=== PATIENT | male | born 1990 | race Caucasian/White ===

== ENCOUNTER 2020-05-04 22:45 | Inpatient (IN) ==
[2020-05-04] MEDS ORDERED: LORazepam 2 MG/4 ML VIAL IV STA ×2 (23:11→23:13)
[2020-05-04] MEDS ORDERED: SODIUM CHLORIDE 0.9% 1000ML 1,000 ML IV SCH (23:15)
[2020-05-04] MEDS: LORazepam 2 MG/4 ML VIAL ONE (23:20)
[2020-05-04 23:35] LABS: Appearance Urine Clear (Clear); Bilirubin Urine Negative (Negative); Blood Urine Negative (Negative); Color Urine Yellow; Glucose Urine UA Negative (Negative); Ketones Urine Negative (Negative); Leukocyte Esterase Urine Negative (Negative); Nitrite Urine Negative (Negative); Protein Urine Negative (Negative); Specific Gravity Urine 1.009 (1.000-1.030); Urobilinogen Urine Negative (Negative)
[2020-05-04 23:40] LABS: Basophils # (auto) 0.12 K/uL (0-0.2); Basophils % (auto) 0.8 %; Eosinophils # (auto) 1.13 K/uL (0-0.5); Eosinophils % (auto) 7.6 %; Hematocrit (blood only) 44.7 % (42-52); Hemoglobin 15.3 g/dL (14.0-18.0); Immature Granulocytes % (auto) 0.7 %; Lymphocytes # (auto) 4.19 K/uL (1.2-3.4); Lymphocytes % (auto) 28.2 %; Mean Corpuscular Hemoglobin 29.4 pg (25-34); Mean Corpuscular Hgb Conc 34.2 g/dL (32-36); Mean Corpuscular Volume 85.8 fL (80-100); Mean Platelet Volume 8.8 fL (7.4-10.4); Monocytes # (auto) 1.35 K/uL (0.11-0.59); Monocytes % (auto) 9.1 %; Neutrophils # (auto) 7.95 K/uL (1.4-6.5); Neutrophils % (auto) 53.6 %; Platelet Count 318 K/uL (130-400); RDW Coefficient of Variation 14.7 % (11.5-14.5); RDW Standard Deviation 46.2 fL (36.4-46.3); Red Blood Count 5.21 M/uL (4.7-6.1); White Blood Count 14.84 K/uL (4.8-10.8)
[2020-05-04 23:56] LABS: Amphetamines+Metham, Urine Neg (Neg); Barbiturates, Urine Neg (Neg); Benzodiazepine, Urine Pos (Neg); Cocaine, Urine Neg (Neg); MDMA (Ecstacy), Urine Neg (Neg); Methadone, Urine Neg (Neg); Opiate, Urine Neg (Neg); Phencyclidine, Urine Neg (Neg)
[2020-05-05] LABS: BUN Creatinine Ratio 5.3 (10-20); Calcium 7.8 mg/dl (8.5-10.1); Creatinine Clr Calc Pharmacy 129.6 ml/min; Est GFR (African American) 104.7; Est GFR (Non-African American) 90.3; Potassium 4.4 mmol/L (3.5-5.1)
[2020-05-05 00:02] LABS: Acetaminophen < 2 ug/ml (10-30); Salicylate < 1.7 mg/dl (2.8-20)
[2020-05-05 00:16] LABS: Albumin Globulin Ratio 0.8 (0.9-2); Bilirubin,Total 0.3 mg/dl (0.2-1); Globulin 3.9 gm/dl (2.5-4.0); Total Protein 6.9 gm/dl (6.4-8.2); Troponin I 0.408 ng/ml (0-0.045)
[2020-05-05] MEDS ORDERED: DiphenhydrAMINE HCL 50 MG/ML VIAL ONE (00:17)
[2020-05-05] MEDS ORDERED: LORazepam 2 MG/4 ML VIAL IV STA ×2 (00:18→01:27)
[2020-05-05] MEDS: LORazepam 2 MG/4 ML VIAL ONE (00:25)
[2020-05-05] MEDS ORDERED: SODIUM CHLORIDE 0.9% 1000ML 1,000 ML IV ONE (01:27)
[2020-05-05] MEDS ORDERED: MULTI-VITAMIN INFUSION 10 ML, THIAMINE HCL 100 MG, FOLIC ACID 1 MG in SODIUM CHLORIDE 0... IV ONE (01:27)
[2020-05-05] MEDS ORDERED: LORazepam 2 MG/4 ML VIAL IV SCH (03:00)
--- NOTE | 2020-05-05 03:05 | History & Physical Report ---
Date of Service May 05, 2020 Assessment & Plan (1) Hypertension: Magno Pete is a 30 year old man who was on his way to rehab when he relapsed and drank 2 fifths of vodka and after being altered at [facility] was sent to our emergency department. Found to have elevated troponin and acute h ypoxemic respiratory failure. Acute alcohol intoxication History of alcohol abuse, was on way to rehab Given banana bag in ED, patient agitated, got 9 mg of ativan in ED still agitated Will treat with 2 mg ativan q3h plus AWSS withdrawal protocol Patient is very large man, in past has needed increasing doses of benzos to help with his agitation and withdrawal LR at 100 mls/hour Acute hypoxemic respiratory failure Possibly secondary to aspiration vs acute alcohol intoxication mixed with obesity hypoventilation syndrome vs cardiac in origin Will continue to monitor closely as he becomes less intoxicated and supplement with O2 in meantime Elevated troponin Possibly secondary to alcoholic cardiomyopathy vs acute event. Will recheck troponin stat and if elevated will start heparin drip and consult cardiology for am Echo ordered for am Patient asymptomatic, no chest pain, no exertional symptoms though history limited by intoxication Elevated CK Likely secondary to very large muscle mass and abuse of testosterone and possibly other substances to increase muscle mass Hypertension Continuing home lisinopril Depression Continuing home welbutrin Dispo: PCU for cardiac monitoring, repeat troponin ativan as needed DVT PPx: Lovenox F/E/N: LR at 100 mls/hours (2) Depression: (3) Alcoholism: (4) Acute alcohol intoxication: (5) Elevated troponin: (6) Acute hypoxemic respiratory failure: History of Present Illness Chief Complaint: Magno Pete is a 30 year old man with a past medical history of alcohol abuse obesity, depression and hypertension who presents today for acute alcohol intoxication with AMS and hypoxia. He was en route to [facility] and pulled over at a gas station. he then went to a gas station and drank 2 fifths of vodka. He appeared at [facility] clearly altered and he was sent here. ON admission to the ED patient was found to be hypoxic, requiring 5L of oxygen, tachycardic and tachypneic. HIs labwork was significant for an elevated WBC of 14.84, a slightly elevated CK, an elevated troponin to .408, and an elevated ethyl alcohol. Imaging significant for increased airspace opacity bilaterally likely partially secondary to body habitus and possible bi basilar consolidation.In ED received 9 mg of ativan to calm him down, still very anxious and feeling like he needs to leave though he is begging for help. He had an ECG which showed some right axis deviation and q waves in lead avf. He is not able to relay his story to me at present secondary to his degree of intoxication. He tells me he had 3 4 tyler but in reality he had 2 fifths of vodka per witnesses. He denies any chest pain, denies any shortness of breath but he does tell me he feels incredibly anxious. 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 Required: No Beliefs That Will Affect Care: None Current Living Situation: Alone Other Information That Helps Us Care for You: No Feels Safe at Home: Yes Safety Concerns: Feels Safe At This Time Smoking Status: Never smoker Hx Alcohol Use: Yes Alcohol type: hard liquor Hx Substance Use: No Review of Systems Review of Systems: Unobtainable due to cognitive status Physical Exam Physical Exam: Constitutional: Clearly intoxicated agitated man rolling in bed Eyes: PERRLA, anicteric sclerae Respiratory: Decreased air entry globally, lung sounds vesicular throughout tachypneic Cardiovascular: Tachycardic, no murmurs rubs skips or gallops, peripheral pulses intact JVD exam limited secondary to body habitus GI: Abdomen obese, soft non tender. normal bowel sounds SKin: Sweaty, no rashes Neuro: Oriented to person place and time, confused anxious affect Results & Data Results & Data ([facility]) Vital Signs (Past 12 Hours) Vital Signs Temp Pulse Pulse Resp BP BP Pulse Ox 05/05/20 02:25 107 H 24 126/69 92 05/05/20 01:05 105 H 28 H 116/68 105 H 05/05/20 00:10 117 H 24 132/83 89 L 05/04/20 22:56 37.1 C 114 H 36 H 150/77 H 92 Code Status & VTE Plan VTE Prophylaxis Plan VTE Prophylaxis will be ordered: Yes Supervising Physician Co-Signing Physician Notes Attending addendum: I have physically seen this patient, have supervised the medical residents activities, and agree with the H&P unless as otherwise noted. Assessment and Plan: Elevated troponin/non-STEMI/hypertension- The patient will be admitted to telemetry for serial cardiac enzymes, serial EKG's, cardiac rhythm monitoring and a 2-D echocardiogram with Dopplers. Since patient is asymptomatic this time an EKG showed no acute findings, will hold on starting heparin drip. If troponin increases and/or patient becomes symptomatic, then will begin heparin drip at that time. Consult cardiology Acute alcohol intoxication/alcohol dependence- Admit to monitored bed AWSS protocol Start with baseline Ativan 2 mg IV every 2 hours ATC, holding for excessive sedation and/or sleep, due to patient's history of significant agitation earlier this evening, despite having already received 9 mg of Ativan IV by the emergency department staff. Acute respiratory failure with hypoxia- Likely secondary to respiratory depression from use of alcohol and use of benzodiazepines to treat agitation. He is already improving in the ED. Depression- Continue Wellbutrin. Consult psychiatry Remaining orders and notations as noted. Resident Activity Tracking Resident Involvement: Resident Care Provided Care Provided: Adult Hospital Medicine
[2020-05-05] MEDS ORDERED: LORazepam 1 MG/2 ML VIAL IV PRN ×2 (03:17→03:43)
[2020-05-05] MEDS ORDERED: STAT IV Infusion **Titration per Protocol STA (03:21)
[2020-05-05] MEDS ORDERED: ONDANSETRON INJ 2 MG/ML 2 ML VIAL IV PRN (03:25)
[2020-05-05] MEDS ORDERED: ATIVAN IV ALCOHOL WITHDRAWL IV PRN ×2 (03:25→03:43)
[2020-05-05] MEDS ORDERED: POLYETHYLENE (MIRALAX) 17 GM PACK PO PRN (03:25)
[2020-05-05] MEDS ORDERED: POLYOLEFIN IV SCH (03:30)
[2020-05-05] MEDS ORDERED: LORAZEPAM IV SCH (03:30)
[2020-05-05] MEDS ORDERED: D5W IV SCH (03:30)
--- NOTE | 2020-05-05 03:38 | Emergency Department Note ---
Impression & Plan Alcohol overdose, Elevated troponin I level ED Provider Note NAME: ROSCOE RICO AGE: 30 SEX: M ARRIVES VIA: Ambulance INFORMANT: Patient, EMS, and the patient's mother ED PROVIDER(S): Padmini Crump DO CHIEF COMPLAINT: Alcohol overdose and agitation PLAN: Disposition: Admitted to the [facility] Condition: Stable MEDICAL DECISION MAKING: This is a 30-year-old male patient with history of alcohol addiction who presents to the emergency department from [facility]. The patient had just arrived at [facility] intake facility [facility] when it was noted that he was acting erratically and appeared to be under the influence of alcohol. EMS was called and he was transported here. The patient was at [facility] which is another rehab facility and was transported over to [facility] by their staff. Apparently the patient asked them to stop at a gas station so that the patient could use the bathroom on their way to [facility] when it seems that the patient must have gone into the bathroom at the gas station and drank alcohol. By the time he arrived at [facility], it was evident that he was under the influence of alcohol. The staff at [facility] felt they could not manage him and called EMS. I had a more detailed conversation with the patient's mother by phone who explained that the patient is from [facility] and has a long history of a lcohol addiction. He has attended multiple rehab facilities. 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 She explains that this weekend, the patient became significantly intoxicated and was taken to the ED at [facility] in [facility] for alcohol overdose. From there, he went to [facility] and then was transferred today over to [facility]. Here in the emergency department [facility], the patient required large doses of IV benzodiazepines to manage his agitation. Blood alcohol level was 283. Upon presentation to the emergency department, the patient was tachycardic and he complained of some epigastric and chest discomfort. He does have an elevated troponin. [facility] for further medical management here. Kept the patient's parents abreast of the situation. Triage Nursing notes reviewed and agree them. Additional history obtained from EMS and the patient's mom Prior medical records reviewed records from [facility] Vital Signs: reviewed and remarkable for tachycardia Differential diagnosis: Alcohol withdrawal, alcohol overdose, drug intoxication, neuroleptic malignant syndrome ER treatment provided: IV Benadryl, IV Ativan x4, IV normal saline hydration Diagnostics interpreted by me: ECG: Sinus tachycardia at [address] segment elevation, signs of ischemia or ectopy. Cardiac Monitoring: Sinus tachycardia at 122 Laboratory studies: See below Imaging studies: As per my interpretation Chest x-ray: Borderline cardiomegaly; underpenetrated film no other acute findings HPI: 30/M arrives for evaluation of alcohol overdose. This is a 30-year-old male patient brought to the emergency department by EMS tonight after consuming a large amount of alcohol in a short period of time. The patient was being transported from one rehab facility to the next when he asked the transporter to stop at a gas station so we can use the bathroom and drink large amount of alcohol in the bathroom. Please see MDM above for additional details. The patient complained of some epigastric discomfort and some chest discomfort. He stated that he was feeling terrible and was essentially begging for Ativan stati ng that a minimum of 6 mg IV would be the only thing that would make him feel better. The patient gave a history that he was typically drinking 2-1/2 fifths of vodka daily to feed his alcohol addiction prior to going into rehab. ROS: See above HPI for pertinent positives & negatives. A total of 10 systems reviewed and were otherwise negative. 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 He describes himself as an alcoholic. HOME MEDICATIONS:He mentions lisinopril; he also mentions using injectable testosterone as prescribed by in [place] to help with his workouts ALLERGIES:He denies any VITALS:See Below PHYSICAL EXAMINATION: HEENT: Head - normocephalic and atraumatic Pupils are equal, round, and reactive to light. Extraocular eye muscles are intact, and sclera are anicteric. Nose - moist nasal mucosa without discharge. Mouth - moist buccal mucosa. Oropharynx is nonerythematous and there is no tonsillar exudate or edema noted. Neck: Supple; no JVD, nuchal rigidity, cervical lymphadenopathy, or auscultated bruits. Heart: Tachycardic rate and rhythm. There is a normal S1 and S2 with no murmurs, clicks, or gallops appreciated. Lungs: Clear to auscultation bilaterally with no wheezes, rales, or rhonchi. Abdomen: Soft, completely nontender, nondistended, with good bowel sounds. There are no palpable pulsatile masses or hepatosplenomegaly. There is no guarding, rigidity, or rebound noted. Extremities: No evidence of cyanosis, clubbing, or edema. There are easily palpable peripheral pulses. Skin: Hot tachycardic with no rashes ED COURSE: Times/Reassessments: 2250: The patient was initially evaluated upon his arrival with multiple security guards at the bedside as the patient was quite agitated. An order was placed for continuous cardiac monitoring. The patient remained in sinus tachycardia at a rate of 124. A second IV lock was initiated. The patient was initially given 2 mg of IV Ativan and this was quickly followed by a second 2 mg of IV Ativan. A detailed report was received from EMS. A twelve-lead EKG was obtained. A chest x-ray was obtained. The patient continued to have episodes of significant agitation and was given an additional 2 mg of IV Ativan. I discussed the case with the patient's mother who was able to give more extensive history. The patient threatened to want to leave as he was not completely relaxed. He was given 50 mg of IV Benadryl which did seem to help with his agitation. He had received 1 mg of IV Ativan prehospital he and states that it has taken up to 8 mg of Ativan in the past to get him the relaxation that he needs so he was ordered an additional 1 mg of IV Ativan here in the department which would bring his total to 8 mg. Patient's blood alcohol level was quite elevated. I reviewed these laboratory studies with him. He did have an elevated troponin. He does admit to using large doses of injectable testosterone when he works out. He denies any other significant drug use. I discussed the case with the [facility] and they will evaluate for further management. Padmini Crump DO Past Med/Surg History Social History Preferred Language: Croatian Vertical Lathe Operator Required: No Beliefs That Will Affect Care: None Current Living Situation: Alone Other Information That Helps Us Care for You: No Feels Safe at Home: Yes Safety Concerns: Feels Safe At This Time Smoking Status: Never smoker Hx Alcohol Use: Yes Alcohol type: hard liquor Hx Substance Use: No Home Meds Home Medications Medication Instructions Recorded Confirmed bupropion HCl 300 mg PO DAILY 05/05/20 05/05/20 lisinopril-hydrochlorothiazide 1 tab PO DAILY 05/05/20 05/05/20 Results & Data (ED) Vital Signs Vital Signs - 24 hr 05/04/20 22:56 05/04/20 23:17 05/04/20 23:34 Temperature 37.1 C Temperature Source Oral Pulse Rate 114 H Pulse Rate [Apical] Pulse Rhythm [Apical] Pulse Strength [Apical] Respiratory Rate 36 H Respiratory Effort / Characteristics Respiratory Depth Respiratory Pattern Blood Pressure 150/77 H Blood Pressure [Left Arm] Blood Pressure Mean 101 Blood Pressure Mean [Left Arm] Blood Pressure Position [Left Arm] Pulse Oximetry 92 Oxygen Delivery Method Room Air Nasal Cannula Room Air Oxygen Flow Rate 3 Sepsis Recent Fever Within 48 Hours No Sepsis Action Taken by Nursing No Action Required 05/05/20 00:10 05/05/20 01:05 05/05/20 02:25 Temperature Temperature Source Pulse Rate Pulse Rate [Apical] 117 H 105 H 107 H Pulse Rhythm [Apical] Regular Regular Regular Pulse Strength [Apical] Normal Normal Normal Respiratory Rate 24 28 H 24 Respiratory Effort / Characteristics Non-Labored Spontaneous Labored Non-Labored Spontaneous Respiratory Depth Normal Normal Respiratory Pattern Regular Regular Blood Pressure Blood Pressure [Left Arm] 132/83 116/68 126/69 Blood Pressure Mean Blood Pressure Mean [Left Arm] 99 84 88 Blood Pressure Position [Left Arm] Sitting Lying Pulse Oximetry 89 L 105 H 92 Oxygen Delivery Method Room Air Nasal Cannula Nasal Cannula Oxygen Flow Rate 5 5 Sepsis Recent Fever Within 48 Hours Sepsis Action Taken by Nursing Laboratory Data Result diagrams: 05/05/20 04:10 05/04/20 23:31 Lab Results 05/04/20 05/04/20 05/04/20 Range/Units 23:25 23:25 23:31 WBC 14.84 H (4.8-10.8) K/uL RBC 5.21 (4.7-6.1) M/uL Hgb 15.3 (14.0-18.0) g/dL Hct 44.7 (42-52) % MCV 85.8 (80-100) fL MCH 29.4 (25-34) pg MCHC 34.2 (32-36) g/dL RDW Std Deviation 46.2 (36.4-46.3) fL RDW Coeff of Michael 14.7 H (11.5-14.5) % Plt Count 318 (130-400) K/uL MPV 8.8 (7.4-10.4) fL Immature Gran % (Auto) 0.7 % Neut % (Auto) 53.6 % Lymph % (Auto) 28.2 % Andrews % (Auto) 9.1 % Eos % (Auto) 7.6 % Baso % (Auto) 0.8 % Neut # (Auto) 7.95 H (1.4-6.5) K/uL Lymph # (Auto) 4.19 H (1.2-3.4) K/uL Andrews # (Auto) 1.35 H (0.11-0.59) K/uL Eos # (Auto) 1.13 H (0-0.5) K/uL Baso # (Auto) 0.12 (0-0.2) K/uL Immature Gran # (Auto) 0.10 H (0.00-0.02) K/uL Sodium (136-145) mmol/L Potassium (3.5-5.1) mmol/L Chloride (98-107) mmol/L Carbon Dioxide (21-32) mmol/L Anion Gap (3-11) BUN (7-18) mg/dl Creatinine (0.6-1.4) mg/dl Est Cr Clr Drug Dosing ml/min Est GFR ( Amer) Est GFR (Non-Af Amer) BUN/Creatinine Ratio (10-20) Glucose (70-99) mg/dl Calcium (8.5-10.1) mg/dl Magnesium (1.8-2.4) mg/dl Total Bilirubin (0.2-1) mg/dl AST (15-37) U/L ALT (12-78) U/L Alkaline Phosphatase (45-117) U/L Total Creatine Kinase (39-308) U/L Troponin I (0-0.045) ng/ml Total Protein (6.4-8.2) gm/dl Albumin (3.4-5.0) gm/dl Globulin (2.5-4.0) gm/dl Albumin/Globulin Ratio (0.9-2) Urine Color Yellow Urine Appearance Clear (Clear) Urine pH 6.0 (4.5-7.5) Ur Specific Boynton 1.009 (1.000-1.030) Urine Protein Negative (Negative) Urine Glucose (UA) Negative (Negative) Urine Ketones Negative (Negative) Urine Blood Negative (Negative) Urine Nitrite Negative (Negative) Urine Bilirubin Negative (Negative) Urine Urobilinogen Negative (Negative) Ur Leukocyte Esterase Negative (Negative) Salicylates (2.8-20) mg/dl Urine Opiates Screen Neg (Neg) Ur Methadone, Qual Neg (Neg) Acetaminophen (10-30) ug/ml Urine Barbiturates Neg (Neg) Ur Phencyclidine (PCP) Neg (Neg) U Amphetamin/Meth Scrn Neg (Neg) MDMA (Ecstasy) Screen Neg (Neg) U Benzodiazepines Scrn Pos H (Neg) Ur Cocaine Metabolite Neg (Neg) U Marijuana (THC) Screen Neg (Neg) Ethyl Alcohol mg/dL (0-3) mg/dl 05/04/20 05/04/20 05/04/20 Range/Units 23:31 23:31 23:31 WBC (4.8-10.8) K/uL RBC (4.7-6.1) M/uL Hgb (14.0-18.0) g/dL Hct (42-52) % MCV (80-100) fL MCH (25-34) pg MCHC (32-36) g/dL RDW Std Deviation (36.4-46.3) fL RDW Coeff of Michael (11.5-14.5) % Plt Count (130-400) K/uL MPV (7.4-10.4) fL Immature Gran % (Auto) % Neut % (Auto) % Lymph % (Auto) % Andrews % (Auto) % Eos % (Auto) % Baso % (Auto) % Neut # (Auto) (1.4-6.5) K/uL Lymph # (Auto) (1.2-3.4) K/uL Andrews # (Auto) (0.11-0.59) K/uL Eos # (Auto) (0-0.5) K/uL Baso # (Auto) (0-0.2) K/uL Immature Gran # (Auto) (0.00-0.02) K/uL Sodium 144 (136-145) mmol/L Potassium 4.4 (3.5-5.1) mmol/L Chloride 112 H (98-107) mmol/L Carbon Dioxide 27 (21-32) mmol/L Anion Gap 5.0 (3-11) BUN 6 L (7-18) mg/dl Creatinine 1.08 (0.6-1.4) mg/dl Est Cr Clr Drug Dosing 129.6 ml/min Est GFR ( Amer) 104.7 Est GFR (Non-Af Amer) 90.3 BUN/Creatinine Ratio 5.3 L (10-20) Glucose 91 (70-99) mg/dl Calcium 7.8 L (8.5-10.1) mg/dl Magnesium 2.0 (1.8-2.4) mg/dl Total Bilirubin 0.3 (0.2-1) mg/dl AST 46 H (15-37) U/L ALT 67 (12-78) U/L Alkaline Phosphatase 52 (45-117) U/L Total Creatine Kinase 473 H (39-308) U/L Troponin I 0.408 H* (0-0.045) ng/ml Total Protein 6.9 (6.4-8.2) gm/dl Albumin 3.0 L (3.4-5.0) gm/dl Globulin 3.9 (2.5-4.0) gm/dl Albumin/Globulin Ratio 0.8 L (0.9-2) Urine Color Urine Appearance (Clear) Urine pH (4.5-7.5) Ur Specific [place] (1.000-1.030) Urine Protein (Negative) Urine Glucose (UA) (Negative) Urine Ketones (Negative) Urine Blood (Negative) Urine Nitrite (Negative) Urine Bilirubin (Negative) Urine Urobilinogen (Negative) Ur Leukocyte Esterase (Negative) Salicylates < 1.7 L (2.8-20) mg/dl Urine Opiates Screen (Neg) Ur Methadone, Qual (Neg) Acetaminophen < 2 L (10-30) ug/ml Urine Barbiturates (Neg) Ur Phencyclidine (PCP) (Neg) U Amphetamin/Meth Scrn (Neg) MDMA (Ecstasy) Screen (Neg) U Benzodiazepines Scrn (Neg) Ur Cocaine Metabolite (Neg) U Marijuana (THC) Screen (Neg) Ethyl Alcohol mg/dL 283.0 H (0-3) mg/dl Administered Medications Lactated Ringer's (Lr) 1,000 mls @ 90 mls/hr IV .Q11H7M AMY Stop: 06/04/20 03:44 Last Admin: 05/05/20 04:13 Dose: 90 mls/hr Documented by: [id number] Lorazepam (Ativan) 2 mg in 4 mls @ 4 mls/min IV UD PRN; Protocol PRN Reason: EtOH Withdrawl AWSS Score 8,9 Stop: 06/04/20 03:42 Last Admin: 05/05/20 03:55 Dose: 4 mls/min Documented by: [id number] Discontinued Medications Diphenhydramine HCl (Benadryl) Confirm Administered Dose 50 mg .ROUTE .STK-MED ONE Stop: 05/05/20 00:18 Last Admin: 05/05/20 00:23 Dose: 50 mg Documented by: [id number] Sodium Chloride (Nss 1000ml) 1,000 mls @ 999 mls/hr IV .Q1H1M AMY Stop: 05/05/20 00:15 Last Infusion: 05/05/20 02:11 Dose: 0 mls/hr Documented by: [id number] Admin: 05/04/20 23:15 Dose: 999 mls/hr Documented by: [id number] Lorazepam (Ativan) 2 mg in 4 mls @ 4 mls/min IV NOW STA Stop: 05/04/20 23:12 Last Admin: 05/04/20 22:55 Dose: 4 mls/min Documented by: [id number] Lorazepam (Ativan) 2 mg in 4 mls @ 4 mls/min IV NOW STA Stop: 05/04/20 23:14 Last Admin: 05/04/20 23:03 Dose: 4 mls/min Documented by: [id number] Lorazepam (Ativan) 2 mg in 4 mls @ 4 mls/min IV NOW STA Stop: 05/05/20 00:19 Last Admin: 05/04/20 23:50 Dose: 4 mls/min Documented by: [id number] Lorazepam (Ativan) 2 mg in 4 mls @ 4 mls/min IV NOW STA Stop: 05/05/20 01:28 Last Admin: 05/05/20 01:49 Dose: 4 mls/min Documented by: [id number] Multivitamins 10 ml/ Thiamine HCl 100 mg/ Folic Acid 1 mg/Sodium Chloride 1,011.2 mls @ 1,011.2 mls/hr IV .Q1H ONE Stop: 05/05/20 02:26 Last Infusion: 05/05/20 04:45 Dose: 0 mls/hr Documented by: [id number] Admin: 05/05/20 02:11 Dose: 1,011.2 mls/hr Documented by: [id number] Sodium Chloride (Nss 1000ml) 1,000 mls @ 999 mls/hr IV .Q1H1M ONE Stop: 05/05/20 02:27 Last Admin: 05/05/20 02:11 Dose: 999 mls/hr Documented by: [id number] Lorazepam (Ativan) Confirm Administered Dose 4 mg .ROUTE .STK-MED ONE Stop: 05/04/20 22:54 Last Admin: 05/05/20 00:25 Dose: 1 mg Documented by: [id number] Discharge Plan Visit Data *Final* Discharge Date/Time: 05/05/20 03:17 Chief Complaint: Alcohol Intoxication ED Provider: Padmini Crump Discharge Problem: Alcohol overdose, Elevated troponin I level Patient Disposition: Admitted As Inpatient Discharge Instructions Interventions: ED Discharge Assessment Last Done: 05/05/20 03:17 Discharge Problem: Alcohol overdose Qualifiers: Encounter type: initial encounter Injury intent: undetermined intent Qualified Code(s): T51.94XA - Toxic effect of unspecified alcohol, undetermined, initial encounter
[2020-05-05] MEDS ORDERED: LORazepam 3 MG/6 ML VIAL IV PRN (03:43)
[2020-05-05] MEDS ORDERED: LORazepam 2 MG/4 ML VIAL IV PRN (03:43)
[2020-05-05] MEDS: LORazepam 2 MG/4 ML VIAL IV PRN ×2 (03:55→09:55)
[2020-05-05] MEDS: LACTATED RINGER'S 1,000 ML IV SCH ×2 (04:13→16:57)
[2020-05-05 04:22] LABS: Basophils # (auto) 0.11 K/uL (0-0.2); Basophils % (auto) 0.8 %; Eosinophils # (auto) 1.33 K/uL (0-0.5); Eosinophils % (auto) 9.4 %; Hematocrit (blood only) 44.6 % (42-52); Hemoglobin 14.7 g/dL (14.0-18.0); Immature Granulocytes # (auto) 0.06 K/uL (0.00-0.02); Immature Granulocytes % (auto) 0.4 %; Lymphocytes # (auto) 4.08 K/uL (1.2-3.4); Lymphocytes % (auto) 28.7 %; Mean Corpuscular Hemoglobin 28.6 pg (25-34); Mean Corpuscular Volume 86.8 fL (80-100); Mean Platelet Volume 8.8 fL (7.4-10.4); Monocytes # (auto) 1.19 K/uL (0.11-0.59); Monocytes % (auto) 8.4 %; Neutrophils # (auto) 7.45 K/uL (1.4-6.5); Neutrophils % (auto) 52.3 %; Platelet Count 339 K/uL (130-400); RDW Coefficient of Variation 14.7 % (11.5-14.5); RDW Standard Deviation 47.3 fL (36.4-46.3); Red Blood Count 5.14 M/uL (4.7-6.1); White Blood Count 14.22 K/uL (4.8-10.8)
[2020-05-05 04:38] LABS: Partial Thromboplastin Ratio 0.9; Partial Thromboplastin Time 25.6 Seconds (21.0-31.0); Prothrombin Time 10.7 Seconds (9.0-12.0)
--- NOTE | 2020-05-05 07:23 | XRay Report ---
SINGLE VIEW CHEST CLINICAL HISTORY: Elevated troponins. FINDINGS: 2 AP, portable, upright chest radiographs are obtained. No prior studies are available for comparison at the time of dictation. The examination is degraded by portable technique and patient ro tation. The heart is top normal for projection. There is pulmonary vascular congestion. Hazy bilater al opacities likely represent interstitial edema. Trace pleural effusions are suspected. No pneumotho rax is seen. The bony thorax is grossly intact. IMPRESSION: 1. There is pulmonary vascular congestion. 2. Hazy bilateral airspace opacities likely represent a component of interstitial edema. Correlate cl inically for evidence of a superimposed infectious/inflammatory pneumonitis. ACT 112: Negative or not required by law. Electronically signed by: Aydin Rios M.D. 05/05/2020 7:21 AM
[2020-05-05 08:08] LABS: Folate (Folic Acid) > 24.00 ng/ml (>5.38); Vitamin B12 695 pg/ml (211-911)
[2020-05-05] MEDS ORDERED: THIAMINE HCL 100 MG in SYRINGE 9 ML IV SCH (09:00)
[2020-05-05] MEDS: BuPROPion XL 300 MG TABCR PO SCH (09:34)
[2020-05-05] MEDS: ENOXAPARIN INJ 40 MG/0.4 ML SYR SQ SCH (09:34)
[2020-05-05] MEDS: FOLIC ACID 1 MG in SYRINGE 9.8 ML IV SCH (09:34)
[2020-05-05] MEDS: LISINOPRIL/HCTZ 20/12.5MG 1 TAB TAB PO SCH (09:34)
[2020-05-05] MEDS ORDERED: GABAPENTIN 1200MG ALCOHOL WITHDRAWAL LOAD PO STA (11:28)
--- NOTE | 2020-05-05 11:31 | Hospitalist Progress Note ---
Date of Service May 05, 2020 Assessment & Plan (1) Acute hypoxemic respiratory failure: diffuse infiltrates on chest x-ray. echo performed - preserved EF, IVC normal size; exam not c/w acute CHF/pulmonary edema. aspiration pneumonitis in setting of alcohol intoxication? cannot rule out early ARDS from aspiration event. COVID-19 PCR negative. biofire resp panel negative. will cover for aspiration pneumonia with unasyn IV. cover for atypical pathogens with doxy IV. pulmonary toilet. add combivent. wean O2 as tolerated. if any worsening - pulmonary consultation. consider repeat cxr on AM of 05/06. (2) Acute alcohol intoxication: Recent alcohol binge lasting 10-14 days. Then went to detox center for 2-3 days. This was followed by transfer to [facility] for inpatient rehab program. En route to [facility] stopped at gas station and drank large amounts of liquor becoming acutely intoxicated. Intoxication now resolved. Uncertain if current state is alcohol withdrawal +/- severe anxiety. Treat both. see below. (3) Alcohol withdrawal: Place on gabapentin protocol. Ativan per protocol. Serial withdrawal scores. Increase thiamine to 200mg IV BID. Folate 1mg IV daily. Supportive care, etc. Has marked tachycardia and HTN - likely withdrawal and severe anxiety. Start inderal 20mg TID. (4) Alcoholism: Long history of such. Prior period of sobriety lasting 6 months. Then binged x 2 weeks leading up to his detoxing a few days ago. Desires to go to [facility] when medically clear. (5) Elevated troponin I level: Likely myocardial demand ischemia in setting of acute hypoxic resp failure. No acs. Cardiology consult appreciated. Echo noted. (6) Hypertension: Cont CLINT. Cont HCTZ. Adding inderal for HTN, withdrawal, and anxiety. (7) Long-term current use of testosterone replacement therapy: [facility] Rx database shows prescriptions for testosterone replacement. Unusual for someone his age. He did not volunteer this information. Will check testosterone level in am. If markedly elevated this is concerning for illicit/inappropriate use (for body- building, recreational use, etc). (8) Generalized anxiety disorder: Severe. Chronic issue. Is on wellbutrin chronically but not an ideal med for anxiety. Would likely benefit more so from SSRI. Consider psych consult once medical issues have settled down. No features by his history or his mother's history to suggest bipolar. Adding inderal. Check TSH - r/o hyperthyroidism - in am. (9) Toxic encephalopathy: 2nd to etoh intoxication - now resolved. Mental status near-normal. (10) Elevated creatine kinase level: Mild, early rhabdo?? Recheck CPK in am. Cont IVF. Recheck AST in am as well. 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 he himself is an alcoholic- had been sober for 6 months - then relapsed 10-14 days ago, drinking copious amounts of liquor daily since then. denies COVID exposures. ?fever last few days. does admit to body aches, chills, and mild dyspnea. 2-3 days ago he checked himself into a detox center. following such he was released to [facility] rehab center. en route to [facility] he stopped at a gas station and drank a large amount of liquor. he managed to get to [facility]. He was noted to be severely intoxicated and [facility] promptly recommended hospitalization. upon arrival at [facility] he was hypoxic with O2 sats of 89%. he required 9mg of ativan due to severe agitation. etoh level was markedly elevated. this am during my visit he asked multiple times for additional ativan for severe anxiety. he felt he was still going through etoh withdrawal. states he take wellbutrin on chronic basis. he denies h/o bipolar disorder or other mental health condition except the anxiety. patient gave permission for me to speak with his mother. by phone his mother reported many years of severe anxiety. She confirmed he had never been hospitalized for mental health conditions. She was not aware of any past h/o maco or bipolar d/o. he was hospitalized in [place] after suffering from head trauma. He was intubated during that admission. Review of Systems Constitutional: + fever, + chills and + fatigue; no anorexia Ear, Nose, Mouth, Throat: + sore throat Respiratory: + dyspnea; no cough Cardiovascular: no chest pain Gastrointestinal: no abdominal pain, no nausea and no vomiting Psychiatric: + anxiety; no depression Physical Exam Constitutional: + acute distress (tachypneic; agitated) and + altered mental status (slightly confused, shifting from topic to topic) Eyes: PERRL ENMT: external ear and nose normal, oropharynx normal Respiratory: + tachypneic Auscultation: + crackles (extensive b/l bases); no wheezes Cardiovascular: Rate/Rhythm: regular rhythm and + tachycardic Heart Sounds: normal S1 and normal S2; no murmur Vessels: posterior tibial pulses present and dorsalis pedis pulses present; no JVD Extremities: no edema Gastrointestinal (Abdomen): normal bowel sounds, soft, nontender, no hepatosplenomegaly Skin: sweaty Neurologic: Motor/Sensory: + tremor (mild) Psychiatric: Orientation: alert Affect: + anxious affect Results & Data Results & Data ([facility]) Vital Signs (Past 12 Hours) Vital Signs Temp Pulse Pulse Pulse Resp BP BP 05/05/20 08:00 37 C 108 H 102 H 27 H 161/60 H 05/05/20 07:57 36.7 C 92 H 27 H 161/60 H 05/05/20 06:00 105 H 26 H 153/104 H 05/05/20 04:00 101 H 32 H 130/72 05/05/20 03:25 05/05/20 03:17 36.6 C 106 H 106 H 48 H 126/69 167/77 H 05/05/20 02:25 107 H 24 126/69 05/05/20 01:05 105 H 28 H 116/68 05/05/20 00:10 117 H 24 132/83 Pulse Ox Pulse Ox 05/05/20 08:00 93 05/05/20 07:57 93 05/05/20 06:00 90 05/05/20 04:00 92 05/05/20 03:25 91 05/05/20 03:17 95 05/05/20 02:25 92 05/05/20 01:05 105 H 05/05/20 00:10 89 L Laboratory Results Laboratory Results - last 24 hr 05/04/20 05/04/20 05/04/20 23:25 23:25 23:25 WBC RBC Hgb Hct MCV MCH MCHC RDW Std Deviation RDW Coeff of Michael Plt Count MPV Immature Gran % (Auto) Neut % (Auto) Lymph % (Auto) Loving % (Auto) Eos % (Auto) Baso % (Auto) Neut # (Auto) Lymph # (Auto) Loving # (Auto) Eos # (Auto) Baso # (Auto) Immature Gran # (Auto) PT INR APTT PTT Ratio Sodium Potassium Chloride Carbon Dioxide Anion Gap BUN Creatinine Est Cr Clr Drug Dosing Est GFR ( Amer) Est GFR (Non-Af Amer) BUN/Creatinine Ratio Glucose Calcium Magnesium Total Bilirubin AST ALT Alkaline Phosphatase Total Creatine Kinase Troponin I Total Protein Albumin Globulin Albumin/Globulin Ratio Vitamin B12 Folate Urine Color Yellow Urine Appearance Clear Urine pH 6.0 Ur Specific [place] 1.009 Urine Protein Negative Urine Glucose (UA) Negative Urine Ketones Negative Urine Blood Negative Urine Nitrite Negative Urine Bilirubin Negative Urine Urobilinogen Negative Ur Leukocyte Esterase Negative Salicylates Urine Opiates Screen Neg Ur Methadone, Qual Neg Acetaminophen Urine Barbiturates Neg Ur Phencyclidine (PCP) Neg U Amphetamin/Meth Scrn Neg MDMA (Ecstasy) Screen Neg U OH-Alprazolam Confrm Pending U Benzodiazepines Scrn Pos H 7-Amino Clonazepam Pending Ur Nordiazepam Confirm Pending U OH-ethylflurazepam Pending U Lorazepam Cnf GC/MS Pending U Oxazepam Confm GC/MS Pending Ur Temazepam Confirm Pending U OH-Triazolam Confirm Pending U OH-Midazolam Confirm Pending Ur Cocaine Metabolite Neg U Marijuana (THC) Screen Neg Drug Screen Comment Pending Ethyl Alcohol mg/dL 05/04/20 05/04/20 05/04/20 23:31 23:31 23:31 WBC 14.84 H RBC 5.21 Hgb 15.3 Hct 44.7 MCV 85.8 MCH 29.4 MCHC 34.2 RDW Std Deviation 46.2 RDW Coeff of Michael 14.7 H Plt Count 318 MPV 8.8 Immature Gran % (Auto) 0.7 Neut % (Auto) 53.6 Lymph % (Auto) 28.2 Loving % (Auto) 9.1 Eos % (Auto) 7.6 Baso % (Auto) 0.8 Neut # (Auto) 7.95 H Lymph # (Auto) 4.19 H Loving # (Auto) 1.35 H Eos # (Auto) 1.13 H Baso # (Auto) 0.12 Immature Gran # (Auto) 0.10 H PT INR APTT PTT Ratio Sodium 144 Potassium 4.4 Chloride 112 H Carbon Dioxide 27 Anion Gap 5.0 BUN 6 L Creatinine 1.08 Est Cr Clr Drug Dosing 129.6 Est GFR ( Amer) 104.7 Est GFR (Non-Af Amer) 90.3 BUN/Creatinine Ratio 5.3 L Glucose 91 Calcium 7.8 L Magnesium 2.0 Total Bilirubin 0.3 AST 46 H ALT 67 Alkaline Phosphatase 52 Total Creatine Kinase 473 H Troponin I 0.408 H* Total Protein 6.9 Albumin 3.0 L Globulin 3.9 Albumin/Globulin Ratio 0.8 L Vitamin B12 Folate Urine Color Urine Appearance Urine pH Ur Specific [place] Urine Protein Urine Glucose (UA) Urine Ketones Urine Blood Urine Nitrite Urine Bilirubin Urine Urobilinogen Ur Leukocyte Esterase Salicylates < 1.7 L Urine Opiates Screen Ur Methadone, Qual Acetaminophen < 2 L Urine Barbiturates Ur Phencyclidine (PCP) U Amphetamin/Meth Scrn MDMA (Ecstasy) Screen U OH-Alprazolam Confrm U Benzodiazepines Scrn 7-Amino Clonazepam Ur Nordiazepam Confirm U OH-ethylflurazepam U Lorazepam Cnf GC/MS U Oxazepam Confm GC/MS Ur Temazepam Confirm U OH-Triazolam Confirm U OH-Midazolam Confirm Ur Cocaine Metabolite U Marijuana (THC) Screen Drug Screen Comment Ethyl Alcohol mg/dL 05/04/20 05/05/20 05/05/20 23:31 04:10 04:10 WBC 14.22 H RBC 5.14 Hgb 14.7 Hct 44.6 MCV 86.8 MCH 28.6 MCHC 33.0 RDW Std Deviation 47.3 H RDW Coeff of Michael 14.7 H Plt Count 339 MPV 8.8 Immature Gran % (Auto) 0.4 Neut % (Auto) 52.3 Lymph % (Auto) 28.7 Loving % (Auto) 8.4 Eos % (Auto) 9.4 Baso % (Auto) 0.8 Neut # (Auto) 7.45 H Lymph # (Auto) 4.08 H Loving # (Auto) 1.19 H Eos # (Auto) 1.33 H Baso # (Auto) 0.11 Immature Gran # (Auto) 0.06 H PT INR APTT PTT Ratio Sodium Potassium Chloride Carbon Dioxide Anion Gap BUN Creatinine Est Cr Clr Drug Dosing Est GFR ( Amer) Est GFR (Non-Af Amer) BUN/Creatinine Ratio Glucose Calcium Magnesium Total Bilirubin AST ALT Alkaline Phosphatase Total Creatine Kinase Troponin I 0.288 H* Total Protein Albumin Globulin Albumin/Globulin Ratio Vitamin B12 Folate Urine Color Urine Appearance Urine pH Ur Specific [place] Urine Protein Urine Glucose (UA) Urine Ketones Urine Blood Urine Nitrite Urine Bilirubin Urine Urobilinogen Ur Leukocyte Esterase Salicylates Urine Opiates Screen Ur Methadone, Qual Acetaminophen Urine Barbiturates Ur Phencyclidine (PCP) U Amphetamin/Meth Scrn MDMA (Ecstasy) Screen U OH-Alprazolam Confrm U Benzodiazepines Scrn 7-Amino Clonazepam Ur Nordiazepam Confirm U OH-ethylflurazepam U Lorazepam Cnf GC/MS U Oxazepam Confm GC/MS Ur Temazepam Confirm U OH-Triazolam Confirm U OH-Midazolam Confirm Ur Cocaine Metabolite U Marijuana (THC) Screen Drug Screen Comment Ethyl Alcohol mg/dL 283.0 H 05/05/20 05/05/20 04:10 04:10 WBC RBC Hgb Hct MCV MCH MCHC RDW Std Deviation RDW Coeff of Michael Plt Count MPV Immature Gran % (Auto) Neut % (Auto) Lymph % (Auto) Loving % (Auto) Eos % (Auto) Baso % (Auto) Neut # (Auto) Lymph # (Auto) Loving # (Auto) Eos # (Auto) Baso # (Auto) Immature Gran # (Auto) PT 10.7 INR 1.0 APTT 25.6 PTT Ratio 0.9 Sodium Potassium Chloride Carbon Dioxide Anion Gap BUN Creatinine Est Cr Clr Drug Dosing Est GFR ( Amer) Est GFR (Non-Af Amer) BUN/Creatinine Ratio Glucose Calcium Magnesium Total Bilirubin AST ALT Alkaline Phosphatase Total Creatine Kinase Troponin I Total Protein Albumin Globulin Albumin/Globulin Ratio Vitamin B12 695 Folate > 24.00 Urine Color Urine Appearance Urine pH Ur Specific [place] Urine Protein Urine Glucose (UA) Urine Ketones Urine Blood Urine Nitrite Urine Bilirubin Urine Urobilinogen Ur Leukocyte Esterase Salicylates Urine Opiates Screen Ur Methadone, Qual Acetaminophen Urine Barbiturates Ur Phencyclidine (PCP) U Amphetamin/Meth Scrn MDMA (Ecstasy) Screen U OH-Alprazolam Confrm U Benzodiazepines Scrn 7-Amino Clonazepam Ur Nordiazepam Confirm U OH-ethylflurazepam U Lorazepam Cnf GC/MS U Oxazepam Confm GC/MS Ur Temazepam Confirm U OH-Triazolam Confirm U OH-Midazolam Confirm Ur Cocaine Metabolite U Marijuana (THC) Screen Drug Screen Comment Ethyl Alcohol mg/dL PG Care Time/CCT Total # of Minutes Spent Total Time Spent with Patient: Total time spent is greater than 50% in coordination of care (as documented) at patient's floor/unit and/or counseling patient: Prolonged Care Time Prolonged Care Time: Yes Total Prolonged Care Time: 70 Coding Level of Care Code 27405 Subseq Hosp Care Lvl 3 (25 - SIGNIFICANT, SEPARATELY IDENTIFIABLE ) Diagnoses Acute hypoxemic respiratory failure J96.01 Acute alcohol intoxication F10.929 Complication of substance-induced condition: with unspecified complication Alcohol withdrawal F10.239 Complication of substance-induced condition: with unspecified complication Alcoholism F10.20 Elevated troponin I level R79.89 Hypertension I10 Hypertension type: essential hypertension Long-term current use of testosterone replacement therapy Z79.890 Generalized anxiety disorder F41.1 Toxic encephalopathy G92 Elevated creatine kinase level R74.8 DVT prophylaxis Z29.9 Additional Codes Prolonged Care Time - Prolonged Care Time: Yes ([id number]) (1) Acute alcohol intoxication Complication of substance-induced condition: with unspecified complication Qualified Code(s): F10.929 - Alcohol use, unspecified with intoxication, unspecified (2) Hypertension Hypertension type: essential hypertension Qualified Code(s): I10 - Essential (primary) hypertension (3) Alcohol withdrawal Complication of substance-induced condition: with unspecified complication Qualified Code(s): F10.239 - Alcohol dependence with withdrawal, unspecified
--- NOTE | 2020-05-05 11:39 | XCELERA ---
[id number]
[2020-05-05] MEDS ORDERED: GABAPENTIN 600 MG TAB PO SCH (12:00)
[2020-05-05] MEDS: IPRATROPIUM BROMIDE/ALBUTEROL respimat INH INH SCH ×3 (12:43→22:02)
--- NOTE | 2020-05-05 12:54 | Cardiology Consultation ---
Date of Consultation May 05, 2020 Assessment & Plan (1) Elevated troponin I level: Patient with acute alcohol intoxication and subsequent hypoxic respiratory insufficiency demonstrates transiently elevated troponin with unremarkable ECG on admission. Echocardiogram showed severe left ventricular pressure for but no regional wall motion abnormalities, left ventricular systolic function was normal. Suspect demand ischemia secondary to supply/demand mismatch from acute physiologic demands of hypoxic respiratory insufficiency. His troponin level was declining substantially, would check follow-up ECG to ensure no evolving phenomenon. Once his pulmonary status has stabilized and he is more awake and alert, could consider dobutamine stress echocardiogram to further risk stratify and exclude underlying coronary artery disease as a contributing factor (although this seems fairly unlikely given his age and lack of major risk factors, in fact coronary disease is quite rare in the setting of chronic alcoholism). Will continue to follow along with you. (2) Acute hypoxemic respiratory failure: Secondary to acute alcohol intoxication. Monitor closely for evidence of pulmonary injury/ARDS which could occur in a post aspiration/hypoxia setting. (3) Acute alcohol intoxication: (4) Hypertension: Likely both acute and chronic elements. Acute element related to his physiologic stress and agitation. Chronic element is suggested by the presence of severe left ventricular hypertrophy, likely he would benefit for him a more aggressive antihypertensive regimen once his acute clinical issues have res olved. History of Present Illness Reason for Consultation: Elevated troponin Requesting Physician: Andrzej Nicole MD Attending Physician: Tavares Rivas History of Present Illness 30-year-old man with history of alcoholism, hypertension, and depression who was admitted early this morning with acute alcohol overdose resulting in hypoxic respiratory insufficiency, incidentally noted to have an elevated troponin but an unremarkable ECG (sinus tachycardia with no ST deviation). He was sedated when I stopped by to evaluate him, so further history was not obtainable. Echocardiogram showed severe left ventricular hypertrophy with but no regional wall motion abnormalities, left ventricular systolic function was normal. 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 Does not appear distressed. Afebrile. Mildly hypertensive. Mildly tachycardic. Respirations in the mid 20s with stertorous sounds. Skin: no ecchymoses or generalized lesions. HEENT: unremarkable. Neck: Difficult to assess for JVD, no carotid bruits. Lungs; lung sounds obscured by upper airway sounds, no obvious crackles or wheezes. No abdominal paradox, intercostal retraction, or nasal flaring. Cardiac: regular tachycardic rhythm without obvious murmur or gallop. Abdomen benign. Extremities: no edema, pulses brisk. Neurologic: Obtunded, grossly nonfocal. Results & Data ([facility]) Diagnostic Findings ECG on admission showed sinus tachycardia at 113 bpm, left atrial enlargement, rightward axis. No ST deviation. No prior ECG for comparison. Chest x-ray read as pulmonary vascular congestion, to my eye this appears to be mostly hypoventilation related vascular crowding. No pleural effusions or focal infiltrates. Echocardiogram showed severe left ventricular hypertrophy with normal left ventricular systolic function (EF 65 to 70%), no regional wall motion normalities, no pericardial effusion, no significant valvular disease. PG Care Time/CCT Total # of Minutes Spent Total Time Spent with Patient: Total time spent is greater than 50% in coordination of care (as documented) at patient's floor/unit and/or counseling patient: Coding Level of Care Code 31911 Inpt Consult Level 3 Diagnoses Elevated troponin I level R79.89 Acute hypoxemic respiratory failure J96.01 Acute alcohol intoxication F10.929 Hypertension I10
[2020-05-05 12:56] LABS: Adenovirus PCR Not Detected (NotDetected); Bordetella parapertussis PCR Not Detected (NotDetected); Bordetella pertussis PCR Not Detected (NotDetected); Chlamydia pneumoniae PCR Not Detected (NotDetected); Coronavirus 229E PCR Not Detected (NotDetected); Coronavirus HKU1 PCR Not Detected (NotDetected); Coronavirus NL63 PCR Not Detected (NotDetected); Coronavirus OC43PCR Not Detected (NotDetected); Human Metapneumovirus PCR Not Detected (NotDetected); Influenza A PCR Not Detected (NotDetected); Influenza B PCR Not Detected (NotDetected); Mycoplasma pneumoniae PCR Not Detected (NotDetected); Parainfluenza Virus 1 PCR Not Detected (NotDetected); Parainfluenza Virus 2 PCR Not Detected (NotDetected); Parainfluenza Virus 3 PCR Not Detected (NotDetected); Parainfluenza Virus 4 PCR Not Detected (NotDetected); Respiratory Syncytial VirusPCR Not Detected (NotDetected); Rhinovirus/Enterovirus PCR Not Detected (NotDetected)
[2020-05-05] MEDS: DOXYCYCLINE HYCLATE 100 MG in DEXTROSE 5% 100 ML IV SCH (13:33)
[2020-05-05] MEDS: AMPICILLIN/SULBACTAM SOD 3,000 MG in 0.9 % SODIUM CHLORIDE 100 ML IV SCH ×2 (13:34→20:45)
--- NOTE | 2020-05-05 15:05 | Electrocardiogram Report ---
Test Reason : Blood Pressure : / mmHG Vent. Rate : 113 BPM Atrial Rate : 113 BPM P-R Int : 138 ms QRS Dur : 090 ms QT Int : 326 ms P-R-T Axes : 050 091 006 degrees QTc Int : 447 ms Poor data quality, interpretation may be adversely affected Sinus tachycardia Left atrial enlargement Rightward axis Abnormal ECG No previous ECGs available Confirmed by Rakesh Hamilton ([id number]) on 05/05/2020 3:05:01 PM Referred By: REFERRED SELF Confirmed By:Rakesh Hamilton
--- NOTE | 2020-05-05 15:06 | Electrocardiogram Report ---
Test Reason : Blood Pressure : / mmHG Vent. Rate : 110 BPM Atrial Rate : 110 BPM P-R Int : 140 ms QRS Dur : 090 ms QT Int : 340 ms P-R-T Axes : 049 060 -05 degrees QTc Int : 460 ms Sinus tachycardia Abnormal ECG When compared with ECG of 04-MAY-2020 23:23, No significant change was found Confirmed by Rakesh Hamilton ([id number]) on 05/05/2020 3:05:34 PM Referred By: REFERRED SELF Confirmed By:Rakesh Hamilton
[2020-05-05] MEDS: GABAPENTIN 600 MG TAB PO SCH ×2 (17:47→22:59)
[2020-05-05] MEDS: LORazepam 1 MG TAB PO PRN (18:17)
[2020-05-05] MEDS ORDERED: Nursing to Pharmacy Communication SCH (19:30)
[2020-05-05] MEDS ORDERED: THIAMINE HCL 200 MG in SYRINGE 9 ML IV SCH (21:00)
[2020-05-05] MEDS: THIAMINE HCL 200 MG in SODIUM CHLORIDE 0.9% 50 ML IV SCH (22:02)
[2020-05-05] MEDS: PROPRANOLOL HCL 20 MG TAB PO SCH (22:03)
--- NOTE | 2020-05-05 23:58 | Billing Data ---
Date of Service May 05, 2020 Coding Level of Care Code 97657 Initial Inpt Care Lvl 3
[2020-05-06] MEDS: DOXYCYCLINE HYCLATE 100 MG in DEXTROSE 5% 100 ML IV SCH ×2 (00:21→12:48)
[2020-05-06] MEDS: AMPICILLIN/SULBACTAM SOD 3,000 MG in 0.9 % SODIUM CHLORIDE 100 ML IV SCH ×4 (02:26→19:34)
[2020-05-06] MEDS ORDERED: COUGH DROP (SUGAR FREE) LOZ 24 LOZ/1 BOX BUCCAL ONE (04:14)
[2020-05-06] MEDS: LACTATED RINGER'S 1,000 ML IV SCH (04:24)
[2020-05-06 04:45] LABS: Hematocrit (blood only) 50.5 % (42-52); Hemoglobin 16.2 g/dL (14.0-18.0); Mean Corpuscular Hemoglobin 28.7 pg (25-34); Mean Corpuscular Hgb Conc 32.1 g/dL (32-36); Mean Corpuscular Volume 89.4 fL (80-100); Mean Platelet Volume 9.3 fL (7.4-10.4); Platelet Count 363 K/uL (130-400); RDW Coefficient of Variation 14.8 % (11.5-14.5); Red Blood Count 5.65 M/uL (4.7-6.1); White Blood Count 13.69 K/uL (4.8-10.8)
[2020-05-06 05:14] LABS: BUN Creatinine Ratio 8.2 (10-20); Calcium 8.2 mg/dl (8.5-10.1); Creatinine Clr Calc Pharmacy 121.1 ml/min; Est GFR (Non-African American) 82.9; Potassium 4.1 mmol/L (3.5-5.1)
[2020-05-06 05:24] LABS: Thyroid Stimulating Hormone 2.45 uIu/ml (0.300-4.500)
[2020-05-06] MEDS: LISINOPRIL/HCTZ 20/12.5MG 1 TAB TAB PO SCH (08:45)
[2020-05-06] MEDS: PROPRANOLOL HCL 20 MG TAB PO SCH ×3 (08:46→21:01)
[2020-05-06] MEDS: BuPROPion XL 300 MG TABCR PO SCH (08:46)
[2020-05-06] MEDS: GABAPENTIN 600 MG TAB PO SCH ×2 (08:47→16:33)
[2020-05-06] MEDS: IPRATROPIUM BROMIDE/ALBUTEROL respimat INH INH SCH ×4 (08:54→21:01)
[2020-05-06] MEDS: ENOXAPARIN INJ 40 MG/0.4 ML SYR SQ SCH (08:55)
[2020-05-06] MEDS: THIAMINE HCL 200 MG in SODIUM CHLORIDE 0.9% 50 ML IV SCH ×2 (08:55→21:00)
[2020-05-06] MEDS: FOLIC ACID 1 MG in SYRINGE 9.8 ML IV SCH (10:48)
[2020-05-06] MEDS: LORazepam 1 MG TAB PO PRN ×2 (12:53→19:34)
--- NOTE | 2020-05-06 13:11 | Cardiology Progress Note ---
Date of Service May 06, 2020 Assessment & Plan (1) Elevated troponin: (2) Acute alcohol intoxication: (3) Hypertension: (4) Acute hypoxemic respiratory failure: Patient looks clinically much better today. Given his reportedly very good exercise tolerance without symptoms at baseline, presence of underlying coronary disease as an explanation for his elevated troponin seems quite unlikely. Rather, suspect the degree of hypoxic insult due to obtundation was sufficient to cause supply/demand mismatch with resultant troponin elevation. If further risk stratification is desired, could perform treadmill exercise test once patient has recovered from his acute illness (this could be scheduled as an outpatient or potentially perform prior to discharge if he is doing well clinically). Aside from consideration of a stress test at some point, no other cardiac recommendations at this time. Admission and Anticipated Discharge Date Admission Date: May 05, 2020 Subjective Patient looks much better today. Alert and oriented. He notes that he works out 4-5 times a week and has never noted any chest pain or unusual dyspnea. Currently he has no cardiopulmonary symptoms, denying chest pain, dyspnea, or palpitations. He does note an extreme sense of anxiety and wonders if he could have IV Ativan (stating that oral Ativan does not work). No other complaints. Physical Exam Physical Exam: Moderately obese adult white male appears moderately anxious but not in distress. Afebrile. Normotensive currently. No longer tachycardic. Respirations 20 but unlabored. Skin: no ecchymoses or generalized lesions. HEENT: unremarkable. Neck: No JVD, no carotid bruits. Lungs: Mildly decreased breath sounds but clear bilaterally. Cardiac: regular rhythm without obvious murmur or gallop. Abdomen benign. Extremities: no edema, pulses brisk. Neurologic: Alert, appropriate conversation, grossly nonfocal. Results & Data ([facility]) Vital Signs (Past 12 Hours) Vital Signs Temp Pulse Resp BP Pulse Ox 05/06/20 08:56 97.7 F 85 20 132/78 96 05/06/20 04:10 97.7 F 87 22 141/84 H 98 Diagnostic Findings No ECG or chest x-ray today. PG Care Time/CCT Total # of Minutes Spent Total Time Spent with Patient: Total time spent is greater than 50% in coordination of care (as documented) at patient's floor/unit and/or counseling patient: Coding Level of Care Code 00984 Subseq Hosp Care Lvl 3 Diagnoses Elevated troponin R79.89 Acute alcohol intoxication F10.929 Complication of substance-induced condition: with unspecified complication Hypertension I10 Hypertension type: essential hypertension Acute hypoxemic respiratory failure J96.01 (1) Acute alcohol intoxication Complication of substance-induced condition: with unspecified complication Qualified Code(s): F10.929 - Alcohol use, unspecified with intoxication, unspecified (2) Hypertension Hypertension type: essential hypertension Qualified Code(s): I10 - Essential (primary) hypertension
--- NOTE | 2020-05-06 16:27 | Hospitalist Progress Note ---
Date of Service May 06, 2020 Assessment & Plan (1) Hypertension: Cont CLINT. Cont HCTZ. Adding inderal for HTN, withdrawal, and anxiety. (2) Depression: (3) Alcoholism: Long history of such. Prior period of sobriety lasting 6 months. Then binged x 2 weeks leading up to his detoxing a few days ago. Desires to go to [facility] when medically clear. Earliest they can accept pt is 7/3 (4) Acute alcohol intoxication: Recent alcohol binge lasting 10-14 days. Then went to detox center for 2-3 days. This was followed by transfer to [facility] rehab center for inpatient rehab program. En route to [facility] stopped at gas station and drank large amounts of liquor becoming acutely intoxicated. Intoxication now resolved. Uncertain if current state is alcohol withdrawal +/- severe anxiety. Treat both. see below. (5) Elevated troponin: Likely demand ischemia Seen by cardiology Recs for stress if ongoing concerns, can be done outpt given low risk for ACS (6) Acute hypoxemic respiratory failure: diffuse infiltrates on chest x-ray. echo performed - preserved EF, IVC normal size; exam not c/w acute CHF/pulmonary edema. aspiration pneumonitis in setting of alcohol intoxication? cannot rule out early ARDS from aspiration event. COVID-19 PCR negative. biofire resp panel negative. will cover for aspiration pneumonia with unasyn IV. cover for atypical pathogens with doxy IV. pulmonary toilet. add combivent. wean O2 as tolerated. if any worsening - pulmonary consultation. Admission and Anticipated Discharge Date Admission Date: May 05, 2020 Subjective Pt is nervous about his actions and that it will impair his rehab options. No longer shaky, just nervous. Tolerating PO without issue. Pt denies fever, SOB, chest pain, abd pain, n/v/c/d, LE pain or swelling. Would like to go to rehab liz. Review of Systems Review of Systems: Pertinent positives and negatives reviewed in HPI--all ot hers negative Physical Exam Constitutional: WD/WN, vitals as above + morbidly obese Eyes: normal visual davey by confrontation and + anicteric sclerae Neck: normal visual inspection and trachea midline Respiratory: normal respiratory effort, lungs clear to auscultation Cardiovascular: Rate/Rhythm: regular rate and regular rhythm Gastrointestinal (Abdomen): Inspection/Auscultation: abdomen not distended Percussion/Palpation: abdomen soft; abdomen nontender Musculoskeletal: Head/Neck/Chest: normocephalic and head atraumatic negative for edema, peripheral pulses intact Skin: no rashes, warm and dry Neurologic: awake; not confused Speech / Cognition: normal speech Psychiatric: A+Ox3, euthymic affect Mood: + anxious mood (not shaky, just nervous) Results & Data Results & Data ([facility]) Vital Signs (Past 12 Hours) Vital Signs Temp Pulse Resp BP Pulse Ox 05/06/20 16:01 36.6 C 88 19 151/103 H 93 05/06/20 08:56 36.5 C 85 20 132/78 96 PG Care Time/CCT Total # of Minutes Spent Total Time Spent with Patient: Total time spent is greater than 50% in coordination of care (as documented) at patient's floor/unit and/or counseling patient: Coding Level of Care Code 05212 Subseq Hosp Care Lvl 3 Diagnoses Hypertension I10 Hypertension type: essential hypertension Depression F32.9 Alcoholism F10.20 Acute alcohol intoxication F10.929 Complication of substance-induced condition: with unspecified complication Elevated troponin R79.89 Acute hypoxemic respiratory failure J96.01 (1) Hypertension Hypertension type: essential hypertension Qualified Code(s): I10 - Essential (primary) hypertension (2) Acute alcohol intoxication Complication of substance-induced condition: with unspecified complication Qualified Code(s): F10.929 - Alcohol use, unspecified with intoxication, unspecified
[2020-05-07] MEDS: LORazepam 1 MG TAB PO PRN ×2 (00:14→11:34)
[2020-05-07] MEDS: GABAPENTIN 600 MG TAB PO SCH (00:15)
[2020-05-07 00:28] LABS: 7-Aminoclonaz, Confirm NEGATIVE ng/mL (<25); Hydro-Alp Ur, GC/MS NEGATIVE ng/mL (<25); Hydroxyethylflurazepam, Conf NEGATIVE ng/mL (<50); Hydroxymidazolam Ur, GC/MS NEGATIVE ng/mL (<50); Hydroxytriazolam NEGATIVE ng/mL (<50); Lorazepam, Ur GC/MS NEGATIVE ng/mL (<50); Nordiazepam, Confirm NEGATIVE ng/mL (<50); Oxazepam Ur, GC/MS NEGATIVE ng/mL (<50); Temazepam, Confirm 132 ng/mL (<50)
[2020-05-07] MEDS: DOXYCYCLINE HYCLATE 100 MG in DEXTROSE 5% 100 ML IV SCH (00:28)
[2020-05-07] MEDS: AMPICILLIN/SULBACTAM SOD 3,000 MG in 0.9 % SODIUM CHLORIDE 100 ML IV SCH ×2 (02:43→07:24)
[2020-05-07] MEDS: IPRATROPIUM BROMIDE/ALBUTEROL respimat INH INH SCH (07:24)
[2020-05-07] MEDS: BuPROPion XL 300 MG TABCR PO SCH (07:25)
[2020-05-07] MEDS: LISINOPRIL/HCTZ 20/12.5MG 1 TAB TAB PO SCH (07:25)
[2020-05-07] MEDS: PROPRANOLOL HCL 20 MG TAB PO SCH (07:26)
[2020-05-07] MEDS: ENOXAPARIN INJ 40 MG/0.4 ML SYR SQ SCH (07:26)
[2020-05-07] MEDS: THIAMINE HCL 200 MG in SODIUM CHLORIDE 0.9% 50 ML IV SCH (08:09)
[2020-05-07] MEDS: FOLIC ACID 1 MG in SYRINGE 9.8 ML IV SCH (08:09)
--- NOTE | 2020-05-07 11:20 | XRay Report ---
XR chest 2V PA/lateral HISTORY: questionable initial CXR COMPARISON: Chest 05/05/2020. FINDINGS: No pneumothorax. No pleural effusions. The lungs are clear. The heart is top normal in size . No focal lung consolidations to suggest pneumonia. No evidence for pulmonary edema. IMPRESSION: No acute process. ACT 112: Negative or not required by law. Electronically signed by: Wil Garcia M.D. 05/07/2020 11:18 AM
--- NOTE | 2020-05-07 11:25 | Discharge Summary ---
Date of Service May 07, 2020 Principal Diagnosis Pt is feeling much better today. No SOB or chest pain. Still with some baseline anxiety about moving forward with his tx. Pt denies fever, abd pain, n/v/c/d, LE pain or swelling. Discharge Exam Constitutional WD/WN, vitals as above Eyes normal visual davey by confrontation and + anicteric sclerae Neck normal visual inspection and trachea midline Respiratory normal respiratory effort, lungs clear to auscultation Cardiovascular Rate/Rhythm: regular rate and regular rhythm Gastrointestinal (Abdomen) Inspection/Auscultation: abdomen not distended Percussion/Palpation: abdomen soft; abdomen nontender Musculoskeletal Head/Neck/Chest: normocephalic and head atraumatic Skin no rashes, warm and dry Neurologic awake; not confused Speech / Cognition: normal speech Psychiatric A+Ox3, euthymic affect Discharge Data Allergies Allergy/AdvReac Type Severity Reaction Status Date / Time No Known Allergies Allergy Verified 05/05/20 21:39 Consultations 05/05/20 01:55 ED Decision to Admit Stat 05/05/20 03:25 Consult Case Management - Discharge Planning Routine 05/05/20 06:56 Consult Cardiology Routine Hospital Course (1) Hypertension: Cont CLINT. Cont HCTZ. Adding inderal for HTN, withdrawal, and anxiety. Advised that his BP may be elevated due to high testosterone levels and that as this decreases, he may not need all of these HTN meds Advised to monitor daily. (2) Depression: (3) Alcoholism: Long history of such. Prior period of sobriety lasting 6 months. Then binged x 2 weeks leading up to his detoxing a few days ago. D/C to [facility] for ongoing rehab (4) Acute alcohol intoxication: Recent alcohol binge lasting 10-14 days. Then went to detox center for 2-3 days. This was followed by transfer to [facility] rehab center for inpatient rehab program. En route to [facility] stopped at gas station and drank large amounts of liquor becoming acutely intoxicated. Intoxication now resolved. Uncertain if current state is alcohol withdrawal +/- severe anxiety. Treat both. see below. (5) Elevated troponin: Likely demand ischemia CK levels likely increased by testosterone use Seen by cardiology Recs for stress if ongoing concerns, can be done outpt given low risk for ACS (6) Acute hypoxemic respiratory failure: diffuse infiltrates on chest x-ray. echo performed - preserved EF, IVC normal size; exam not c/w acute CHF/pulmonary edema. aspiration pneumonitis in setting of alcohol intoxication? cannot rule out early ARDS from aspiration event. Repeat CXR on 05/07 is neg COVID-19 PCR negative. biofire resp panel negative. Covered for aspiration pneumonia with unasyn IV during admission, will prescribe doxy on d/c for 5 days pulmonary toilet. add combivent. wean O2 as tolerated. if any worsening - pulmonary consultation. (7) Elevated testosterone level: Likely the cause for elevated CK, trop Testesterone level 2130, which is about 3x usual for pt's age Pt states this was a new medication for him, prescribed by a physician in [place] for low energy and exercise intolerance. Advised to f/u with this physician due to elevated levels for a more appropriate dose HTN effects as noted above Advised d/c use Total Time Total Time Spent Total Time Spent (In Minutes): >30 Total Time Includes: Examination of the Patient, Discharge Planning, Medication Reconciliation, Communication With Other Providers and Other Discharge Plan Discharge Items Patient Disposition: Drug & Alcohol Rehab Reason For Visit: ALCOHOL INTOXICATION, HYPOXIA, ELEV TROPONIN Discharge Diagnosis: Alcohol intoxication, elevated troponin Activity: Resume your previous activity Non-emergency contact: Primary Care Provider Call non-emergency contact if: you have any medication questions and your symptoms worsen Follow-up/Referrals: PCP,NO [Primary Care Provider] - Diet: Heart Healthy Addmeka Attending Provider Instructions: You should have a stress test done as an outpatient in the next month or so. If you need help arranging this, please call the hospital and case management will assist you. Your testosterone levels were very high. If you are still taking testosterone supplementation, you should stop taking this and be seen by the physician who is prescribing it for you. High levels of testosterone can cause anxiety, irritability, and elevated blood pressures. You should monitor your blood pressure closely as you may not need all of the medication you are currently taking as your testosterone levels return to normal. Pending Studies at Discharge: No Stand-Alone Forms: My netTALK Skilled Items Patient informed of condition?: Yes DNR: No Discharge Level of Care: Acute rehab Communicable Disease: No Discharge Prognosis: Stable Lines: None Urinary Catheter: No Medications and DC Order Prescriptions: New propranolol 20 mg Tablet 20 mg PO TID Qty: 120 RF: 0 doxycycline hyclate 100 mg capsule 100 mg PO BID 5 Days Qty: 10 RF: 0 Continued bupropion HCl 300 mg tablet extended release 24 hr 300 mg PO DAILY RF: 0 lisinopril-hydrochlorothiazide 20-12.5 mg tablet 1 tab PO DAILY RF: 0 Discharge Orders: Discharge Order (Routine); Ordered 05/07/20 Ordered By: Fiorella England Admission Data Admit Date/Time: 05/05/20 02:35 Attending Provider: Fiorella England Admit Provider: Andrzej Nicole Primary Care Provider: PCP,NO Other Providers: Shan Almonte ; Rakesh Hamilton Other Interventions: Discharge Summary Assessment (RN) Last Done: 05/07/20 11:21 Coding Level of Care Code D/C Day Management >30 mins Diagnoses Hypertension I10 Hypertension type: essential hypertension Depression F32.9 Alcoholism F10.20 Acute alcohol intoxication F10.929 Complication of substance-induced condition: with unspecified complication Elevated troponin R79.89 Acute hypoxemic respiratory failure J96.01 Elevated testosterone level R79.89
[2020-05-07] MEDS ORDERED: GABAPENTIN 600 MG TAB PO SCH (12:00)
--- NOTE | 2020-05-07 16:35 | Cardiology Progress Note ---
Date of Service May 07, 2020 Assessment & Plan (1) Elevated troponin I level: As previously noted, presence of obstructive coronary disease seems very unlikely. Could perform outpatient stress test to further risk stratify if any cardiopulmonary symptoms are noted. (2) Hypertension: Presence of severe left ventricular hypertrophy suggest under controlled hypertension. Discussed the importance of monitoring his blood pressure and adequate control with the patient. Emphasized the importance of alcohol abstinence, since antihypertensive medications will have little benefit if he continues drinking. Admission and Anticipated Discharge Date Admission Date: May 05, 2020 Subjective Patient continues to look clinically well today. He remains quite anxious but had no cardiopulmonary complaints. He denied chest pain, dyspnea, or palpitations. Physical Exam Physical Exam: Moderately obese adult white male appears moderately anxious but not in distress. Afebrile. Normotensive currently. Normal heart rate. Normal respiratory rate. Skin: no ecchymoses or generalized lesions. HEENT: unremarkable. Neck: No JVD, no carotid bruits. Lungs: Mildly decreased breath sounds but clear bilaterally. Cardiac: regular rhythm without obvious murmur or gallop. Abdomen benign. Extremities: no edema, pulses brisk. Neurologic: Alert, appropriate conversation, grossly nonfocal. Results & Data ([facility]) Vital Signs (Past 12 Hours) Vital Signs Temp Pulse Pulse Pulse Resp BP Pulse Ox 05/07/20 11:21 97.9 F 92 H 87 18 131/81 98 05/07/20 08:00 66 05/07/20 07:52 97.9 F 87 18 131/81 98 05/07/20 05:00 97.9 F 80 20 160/79 H 98 PG Care Time/CCT Total # of Minutes Spent Total Time Spent with Patient: Total time spent is greater than 50% in coordination of care (as documented) at patient's floor/unit and/or counseling patient: Coding Level of Care Code 86729 Subseq Hosp Care Lvl 2 Diagnoses Elevated troponin I level R79.89 Hypertension I10 Hypertension type: essential hypertension (1) Hypertension Hypertension type: essential hypertension Qualified Code(s): I10 - Essential (primary) hypertension
[2020-05-09] MEDS ORDERED: GABAPENTIN 600 MG TAB PO SCH
== END 2020-05-07 12:38 | disposition alcohol treatment (31) | DRG 896 ==
LOC: ED 22:45 → SUATTDRO 05-05 02:35 → 1E 05-05 02:35 → 2S 05-06 18:12